=== PATIENT | male | born 1985 | race Caucasian/White ===

== ENCOUNTER 2017-07-24 04:01 | Emergency (ER) | payer OTHER ==
[~2017-07-24] VITALS: Ht 177.8 cm; Wt 98.8 kg
[~2017-07-24 04:01] MED LIST: Z.0.NO CURRENT MEDS
[2017-07-24 04:08] VITALS: BP 128/77; PULSE 79; RESP 18; TEMP 98.6; O2SAT 98
--- NOTE | 2017-07-24 04:47 | PD ---
HPI Chief Complaint: Injury Time Seen by Provider: 04:24 Travel History International Travel<30 days: No Contact w/Intl Traveler<30days: No Traveled to known affect area: No History of Present Illness HPI 31-year-old male presents with left ankle pain after reportedly twisting it while trying to climb down stairs. Patient denies any fall. He states that he inverted it and twisted it. He reports pain when trying to bear weight. There is no numbness or tingling to his left foot. Patient states that he has got a previous history of injuring the same ankle. PFSH Past Medical History Medical History: Denies Significant Hx Diminished Hearing: No Tetanus Vaccination: < 5 Years Influenza Vaccination: Yes Past Surgical History Surgical History: No Previous Surgery Social History Alcohol Use: No Tobacco Use: No Substance Use: No Allergies-Medications (Allergen,Severity, Reaction): Coded Allergies: shellfish derived (Verified Allergy, Intermediate, Hives, 07/24/17) No Known Allergies (Verified Adverse Reaction, Unknown, 07/24/17) Reported Meds & Prescriptions Reported Meds & Active Scripts Active No Active Prescriptions or Reported Medications Review of Systems Except as stated in HPI: all other systems reviewed are Neg Musculoskeletal: Positive: Limited ROM (Secondary to pain), Edema (Laterally), Pain (Left ankle) Neurologic: No: Paresthesia, Sensory Disturbance Physical Exam Narrative GENERAL: Well-nourished, well-developed patient. SKIN: Focused skin assessment warm/dry. HEAD: Normocephalic/atraumatic. MUSCULOSKELETAL: On examination the patient's left ankle, there is edema in to the lateral malleolus. There is no bony deformity appreciated. There is tenderness in the superior bimalleolar distribution. The patient is able to plantarflex and dorsiflex however reports pain. Cap refill is less than 3 seconds. Normal sensation over the distal 5 toes. NEUROLOGICAL: Awake and alert. Cranial nerves II through XII intact. Motor and sensory grossly within normal limits. Five out of 5 muscle strength in all muscle groups. Normal speech. Data Data Last Documented VS Vital Signs Date Time Temp Pulse Resp B/P (MAP) Pulse Ox O2 Delivery O2 Flow Rate FiO2 07/24/17 04:24 98 07/24/17 04:08 98.6 79 18 128/77 (94) Orders Orders Ankle, Complete ([id number]) (07/24/17 04:24) Support Splint (07/24/17 05:04) Crutches (07/24/17 05:04) MDM Medical Decision Making Medical Screen Exam Complete: Yes Emergency Medical Condition: Yes Differential Diagnosis Sprain versus fracture versus contusion Narrative Course 31-year-old male presents with left ankle pain after twisting it when trying to go downstairs. The patient has had a previous injury to this ankle. Patient has obvious swelling to his lateral malleolus. X-rays do not show any fracture dislocation. The patient will be placed in a [place] splint. He will be given crutches. He will be referred out to Dr. Reece, on-call orthopedic surgeon. He is instructed to elevate, ice times 2436 hrs. and use ibuprofen for discomfort. Recommendations is that he does not weight-bear. Diagnosis Primary Impression: Left ankle sprain Referrals: Ros Reece MD Additional Instructions: Elevate. Nonweightbearing. Ice 24-36 hours. Ibuprofen every 6-8 hours for pain. Follow-up with orthopedic physician within 1 week. Scripts No Active Prescriptions or Reported Meds Disposition: 01 DISCHARGE HOME Condition: Stable Osmani Moura MD Jul 24, 2017 04:47
--- NOTE | 2017-07-24 05:32 | RADRPT ---
EXAM DATE/TIME: 07/24/2017 04:52 [facility] COMPARISON: No previous studies available for comparison. INDICATIONS : Left lateral ankle pain after falling down stairs. MEDICAL HISTORY : None. SURGICAL HISTORY : None. ENCOUNTER: Initial ACUITY: 1 day PAIN SCORE: 6/10 LOCATION: Left ankle FINDINGS: Three view exam was performed of the left ankle. The bony structures are in normal alignment. No ev idence of fracture, dislocation. There is soft tissue swelling. The ankle mortise is intact. No rad iopaque foreign bodies are seen. Bony mineralization is normal. CONCLUSION: Soft tissue swelling without fracture. Leandro Self MD on July 24, 2017 at 5:29 Board Certified Radiologist. This report was verified electronically.
[2017-07-24 05:47] VITALS: BP 123/75; TEMP 98.5
== END 2017-07-24 05:51 | disposition home or self-care (01) ==
LOC: PHED 04:01
DX: S93.402A Sprain of unspecified ligament of left ankle, initial encounter (principal); X50.1XXA Overexertion from prolonged static or awkward postures, initial encounter
CPT/HCPCS: 29515; 73610; 99283; E0113